=== PATIENT | female | born 1970 | race Caucasian/White ===

== ENCOUNTER 2017-12-22 20:09 | Emergency (ER) | payer SELFPAY ==
[2017-12-22] MEDS: HYDROCODONE/APAP (5/325) TAB PO (23:42)
== END 2017-12-23 02:17 | disposition home or self-care (01) ==
LOC: FTE 12-23 02:17
DX: S82.435A Nondisplaced oblique fracture of shaft of left fibula, initial encounter for closed fracture (principal); W01.198A Fall on same level from slipping, tripping and stumbling with subsequent striking against other object, initial encounter; Y92.009 Unspecified place in unspecified non-institutional (private) residence as the place of occurrence of the external cause
CPT/HCPCS: 29515; 73610; 73630-LT; 99283-25